=== PATIENT | male | born 1955 | race African-American/Black ===

== ENCOUNTER 2025-02-18 13:19 | Emergency (ER) | payer MEDICARE, OTHER ==
[~2025-02-18] VITALS: Ht 172.7 cm; Wt 100.0 kg
[2025-02-18 13:33] VITALS: BP 150/87; PULSE 82; RESP 22; TEMP 98.1; O2SAT 100
[2025-02-18 16:21] LABS: COVID AG,FIA SOURCE NASAL SWAB
[2025-02-18 16:22] LABS: PLATELET COUNT (AUTO) 224 K/uL (150-450); RED BLOOD CELL COUNT(AUTO) 5.28 MIL/uL (4.50-5.90); RED CELL DISTRIBUTION WIDTH 13.7 % (11.5-14.5); WHITE BLOOD COUNT (AUTO) 4.3 K/uL (4.5-11.0)
[2025-02-18 16:30] LABS: BAND NEUTROPHILS % (MANUAL) 0 % (0-5)
[2025-02-18 16:32] LABS: CALCIUM, TOTAL 8.8 mg/dL (8.8-10.5); CREATININE 0.86 mg/dL (0.60-1.30); GLOMERULAR FILTR. RATE CALC > 60 mL/min (>60); GLUCOSE,RANDOM 95 mg/dL (70-110); SODIUM SERUM 139 mmol/L (136-145); UREA NITROGEN, BLOOD 13 mg/dL (7-18)
[2025-02-18 16:39] LABS: SARS-COV2 (COVID) ANTIGEN,FIA Negative (Negative)
[2025-02-18 16:45] LABS: INFLUENZA TYPE A NEGATIVE FOR TYPE A (NEGATIVE); INFLUENZA TYPE B NEGATIVE FOR TYPE B (NEGATIVE)
[2025-02-18 16:52] LABS: EOSINOPHILS % (MANUAL) 3 % (1-6); LYMPHOCYTES % (MANUAL) 50 % (22-44); MONOCYTES % (MANUAL) 10 % (2-9); RBC MORPHOLOGY COMMENT NORMAL RBC MORPH; REACTIVE LYMPHOCYTES 2 % (0-0); SEGMENTED NEUTROPHILS % 35 % (40-70)
[2025-02-18] MEDS ORDERED: TRAM50TA5 PO (18:45)
== END 2025-02-18 19:10 | disposition home or self-care (01) ==
LOC: EMS 13:19
DX: M65.321 Trigger finger, right index finger (principal); Z20.822 Contact with and (suspected) exposure to COVID-19
CPT/HCPCS: 80048; 85025; 87804; 99284